=== PATIENT | female | born 1955 | race Caucasian/White ===

== ENCOUNTER 2025-04-22 14:23 | Emergency (ER) | payer BC ==
[~2025-04-22] VITALS: Ht 165.1 cm; Wt 63.5 kg
[2025-04-22] MEDS ORDERED: diphenhydrAMINE hydrochloride 50 MG/ML VIAL IV ONE (14:30)
[2025-04-22] MEDS ORDERED: Metoclopramide Hydrochloride 10 MG/2 ML VIAL IV ONE (14:30)
[2025-04-22] MEDS ORDERED: SODIUM CHLORIDE 0.9% 1,000 ML IV ONE (14:30)
[2025-04-22] MEDS ORDERED: CHOLESTEROL PILL (14:33)
[2025-04-22 14:43] LABS: HEMATOCRIT 43.5 % (37.0-47.0); MEAN CELL VOLUME 90.4 fl (81.0-99.0); MEAN CORPUSCULAR HGB 28.9 pg (27.0-31.0); MEAN PLATELET VOLUME 8.7 fl (9.6-12.3); PLATELET COUNT AUTOMATED 292 10*3/uL (130-400); RED BLOOD COUNT 4.81 10*6/uL (4.10-5.10)
[2025-04-22 14:53] LABS: MANUAL DIFF REFLEX YES
[2025-04-22 15:11] LABS: PLATELET SUFFICIENCY NORMAL (NORMAL); TOTAL CELLS COUNTED 100 #CELLS
[2025-04-22 15:12] LABS: BURR CELLS FEW
[2025-04-22 15:39] LABS: ALKALINE PHOSPHATASE 73 U/L (46-116); BUN 19 mg/dl (9-23); CHLORIDE 102 mmol/L (98-107); POTASSIUM 3.5 mmol/L (3.4-5.1); SGPT/ALT 14 U/L (5-49); TOTAL PROTEIN 6.9 gm/dL (6.0-8.0)
[2025-04-22] MEDS ORDERED: Ondansetron4 MG PO (17:19)
== END 2025-04-22 17:25 | disposition home or self-care (01) ==
LOC: ED 14:23
PROVIDERS: Internal Medicine
DX: R55 Syncope and collapse (principal)